=== PATIENT | male | born 1970 | race Caucasian/White ===

== ENCOUNTER 2017-08-04 11:40 | Emergency (ER) | payer BC, OTHER ==
[~2017-08-04] VITALS: Ht 165.1 cm; Wt 107.0 kg
[2017-08-04 12:14] LABS: BASOPHILS # (AUTO) 0.1 X10'3 (0-0.2); EOSINOPHILS # (AUTO) 0.1 X10'3 (0-0.9); EOSINOPHILS % (AUTO) 1.3 % (0-6); HEMATOCRIT 46.7 % (42.0-52.0); HEMOGLOBIN 16.5 g/dl (14.0-17.9); LYMPHOCYTES # (AUTO) 1.7 X10'3 (1.1-4.8); LYMPHOCYTES % (AUTO) 21.1 % (21-51); MEAN CORPUSCULAR HEMOGLOBIN 32.1 PG (27.0-31.0); MEAN CORPUSCULAR HGB CONC 35.2 % (33.0-36.5); MEAN CORPUSCULAR VOLUME 91.1 FL (78-98); MEAN PLATELET VOLUME 7.9 FL (7.4-10.4); MONOCYTES # (AUTO) 0.6 X10'3 (0-0.9); MONOCYTES % (AUTO) 7.4 % (2-12); NEUTROPHILS # (AUTO) 5.5 X10'3 (1.8-7.7); NEUTROPHILS % (AUTO) 69.2 % (42-75); PLATELET COUNT 253 X10'3 (140-440); RED BLOOD COUNT 5.13 X10'6 (4.70-6.10); RED CELL DISTRIBUTION WIDTH 13.6 % (11.5-14.5); WHITE BLOOD COUNT 7.9 X10'3 (4.5-11.0)
[2017-08-04 12:26] LABS: CLARITY,URINE Clear (Clear); GLUCOSE, URINE Negative (Neg); KETONES,URINE Negative (Neg); LEUKOCYTE ESTERASE ,URINE Negative (Neg); NITRITES, URINE Negative (Neg); OCCULT BLOOD,URINE Negative (Neg); PROTEIN,URINE Negative (Neg); UROBILINOGEN,URINE 0.2 E.U/dL (0.2-1.0)
[2017-08-04 12:27] LABS: UA COLLECTION TYPE CLN CATCH MIDSTREAM
[2017-08-04 12:28] LABS: COLOR,URINE COLORLESS (Yellow); URINE AMPHETAMINE SCREEN NEGATIVE (Neg); URINE BARBITUATE SCREEN NEGATIVE (Neg); URINE BENZODIAZEPINES SCREEN NEGATIVE (Neg); URINE CANNABINOID SCREEN NEGATIVE (Neg); URINE COCAINE SCREEN NEGATIVE (Neg); URINE METHADONE SCREEN NEGATIVE (Neg); URINE OPIATE SCREEN NEGATIVE (Neg); URINE PHENCYCLIDINE SCREEN NEGATIVE (Neg)
[2017-08-04 12:34] LABS: ALANINE AMINOTRANSFERASE 59 U/L (12-78); ALBUMIN 4.1 G/DL (3.4-5.0); ALBUMIN/GLOBULIN RATIO 1.1 (1.1-1.5); ALKALINE PHOSPHATASE 44 IU/L (46-116); ANION GAP 12 (8-16); ASPARTATE AMINO TRANSFERASE 44 U/L (10-37); BILIRUBIN,TOTAL 0.8 MG/DL (0.1-1.0); BLOOD UREA NITROGEN 12 MG/DL (7-18); CALCIUM 9.4 MG/DL (8.5-10.1); CHLORIDE 105 MMOL/L (99-107); CREATININE 0.86 MG/DL (0.60-1.10); ETHANOL < 0.010 GM/DL (0.0-0.010); GLUCOSE 104 MG/DL (70-104); POTASSIUM 4.2 MMOL/L (3.5-5.1); SODIUM 141 MMOL/L (135-145); TOTAL CARBON DIOXIDE 24.4 MMOL/L (24-32); TOTAL PROTEIN 7.8 G/DL (6.4-8.2); eGFR > 90 ML/MIN
[2017-08-04] MEDS ORDERED: doxepin 25mg capsule PO STA (15:02)
[2017-08-04] MEDS ORDERED: nicotine 21mg patch - 24 hr TD ONE (16:50)
[2017-08-04] MEDS ORDERED: VENL37.586 PO (17:56)
[2017-08-04] MEDS ORDERED: ALBU8.5H8 IH (17:56)
[2017-08-04] MEDS ORDERED: OMEP40CA37 PO (17:56)
[2017-08-04] MEDS ORDERED: NAPR-56 PO (17:56)
[2017-08-04] MEDS ORDERED: GABA-581 PO (17:56)
[2017-08-04 18:30] VITALS: BP 128/88
== END 2017-08-04 19:44 | disposition home or self-care (01) ==
LOC: ER 11:41
DX: F32.9 Major depressive disorder, single episode, unspecified (principal); R45.851 Suicidal ideations; Z60.2 Problems related to living alone
CPT/HCPCS: 36415; 80053; 80305; 80320; 81003; 84443; 85025; 99284

== ENCOUNTER 2017-08-04 16:40 | Inpatient (IN) | payer BC ==
[~2017-08-04] VITALS: Ht 165.1 cm; Wt 107.8 kg
[2017-08-04] MEDS ORDERED: NAPR-56 PO (17:56)
[2017-08-04] MEDS ORDERED: VENL37.586 PO (17:56)
[2017-08-04] MEDS ORDERED: OMEP40CA37 PO (17:56)
[2017-08-04] MEDS ORDERED: ALBU8.5H8 IH (17:56)
[2017-08-04] MEDS ORDERED: GABA-581 PO (17:56)
[2017-08-04 20:00] VITALS: BP 122/77
[2017-08-04] MEDS ORDERED: naproxen 500mg tablet PO SCH (20:00)
[2017-08-04] MEDS ORDERED: albuterol 2.5 MG/3 ML nebule NEB PRN (20:10)
[2017-08-04] MEDS: GABAPENTIN PO SCH (21:50)
[2017-08-05] MEDS ORDERED: naproxen 500mg tablet PO PRN (05:20)
[2017-08-05] MEDS: pantoprazole 40mg Tablet.DR PO SCH (07:24)
[2017-08-05 07:26] LABS: HEMOGLOBIN A1C 5.6 % (4.5-6.2)
[2017-08-05 07:28] LABS: CHOL/HDL RATIO 4.6 (0.00-4.99); CHOLESTEROL 194 MG/DL (0-200); HDL CHOLESTEROL 42 MG/DL (35-60); LDL CHOLESTEROL 124 MG/DL (50-100); TRIGLYCERIDES 119 MG/DL (20-135)
[2017-08-05 08:00] VITALS: BP 141/96
[2017-08-05] MEDS ORDERED: VENLAFAXINE HCL PO SCH (08:00)
[2017-08-05] MEDS: nicotine 21mg patch - 24 hr TD SCH (09:32)
[2017-08-05] MEDS: hydrOXYzine 25 MG tablet PO PRN (11:26)
[2017-08-05] MEDS: LORazepam 1 MG tablet PO PRN (16:19)
[2017-08-05] MEDS ORDERED: nicotine 21mg patch - 24 hr TD SCH (18:20)
[2017-08-05 19:00] VITALS: BP 116/77
[2017-08-05] MEDS: traZODone 50mg tablet PO PRN (20:50)
[2017-08-05] MEDS: GABAPENTIN PO SCH (20:50)
[2017-08-06] MEDS: pantoprazole 40mg Tablet.DR PO SCH (07:36)
[2017-08-06] MEDS: venlafaxine XR 75mg capsule (Q24H) PO SCH (07:36)
[2017-08-06] MEDS: nicotine 21mg patch - 24 hr TD SCH (07:37)
[2017-08-06 08:00] VITALS: BP 140/89
[2017-08-06 19:23] VITALS: BP 140/88
[2017-08-06] MEDS: gabapentin 300mg capsule PO SCH (21:26)
[2017-08-06] MEDS: traZODone 50mg tablet PO PRN (21:28)
[2017-08-06] MEDS: LORazepam 1 MG tablet PO PRN (21:28)
[2017-08-07 08:00] VITALS: BP 125/85
[2017-08-07] MEDS: venlafaxine XR 75mg capsule (Q24H) PO SCH (08:27)
[2017-08-07] MEDS: pantoprazole 40mg Tablet.DR PO SCH (08:28)
[2017-08-07] MEDS: nicotine 21mg patch - 24 hr TD SCH (08:29)
[2017-08-07 19:00] VITALS: BP 165/90
[2017-08-07] MEDS: hydrOXYzine 25 MG tablet PO PRN (19:10)
[2017-08-07] MEDS: gabapentin 300mg capsule PO SCH (20:45)
[2017-08-07] MEDS: LORazepam 1 MG tablet PO PRN (20:45)
[2017-08-07] MEDS: traZODone 50mg tablet PO PRN (20:45)
[2017-08-08 08:00] VITALS: BP 124/78
[2017-08-08] MEDS: pantoprazole 40mg Tablet.DR PO SCH (08:12)
[2017-08-08] MEDS: venlafaxine XR 75mg capsule (Q24H) PO SCH (08:12)
[2017-08-08] MEDS: nicotine 21mg patch - 24 hr TD SCH (08:12)
[2017-08-08] MEDS: LORazepam 1 MG tablet PO PRN ×2 (11:12→20:59)
[2017-08-08 20:00] VITALS: BP 119/83
[2017-08-08] MEDS: traZODone 50mg tablet PO PRN (20:58)
[2017-08-08] MEDS: gabapentin 300mg capsule PO SCH (20:59)
[2017-08-09 08:00] VITALS: BP 135/89
[2017-08-09] MEDS: venlafaxine XR 75mg capsule (Q24H) PO SCH (08:01)
[2017-08-09] MEDS: pantoprazole 40mg Tablet.DR PO SCH (08:01)
[2017-08-09] MEDS: nicotine 21mg patch - 24 hr TD SCH (08:02)
[2017-08-09] MEDS: LORazepam 1 MG tablet PO PRN ×2 (09:56→20:47)
[2017-08-09 19:00] VITALS: BP 134/93
[2017-08-09] MEDS: traZODone 50mg tablet PO PRN (20:46)
[2017-08-09] MEDS: gabapentin 300mg capsule PO SCH (20:47)
[2017-08-10] MEDS: venlafaxine XR 75mg capsule (Q24H) PO SCH (08:25)
[2017-08-10] MEDS: pantoprazole 40mg Tablet.DR PO SCH (08:25)
[2017-08-10] MEDS: nicotine 21mg patch - 24 hr TD SCH (08:27)
[2017-08-10] MEDS ORDERED: GABA600T2 PO (08:48)
[2017-08-10] MEDS ORDERED: HYDR-3686 PO (08:48)
[2017-08-10] MEDS ORDERED: TRAZ-143 PO (08:48)
[2017-08-10] MEDS ORDERED: PANT40TA4 PO (08:48)
[2017-08-10] MEDS ORDERED: VENL150T3 PO (08:48)
[2017-08-10] MEDS: LORazepam 1 MG tablet PO PRN (08:50)
[2017-08-10] MEDS ORDERED: NICO-687 TD (08:51)
== END 2017-08-10 10:22 | disposition home or self-care (01) | DRG 885 ==
LOC: ADULT MH 16:40
PROVIDERS: ADMIT Psychiatry & Neurology Psychiatry; ATTEND Psychiatry & Neurology Psychiatry
DX: F33.2 Major depressive disorder, recurrent severe without psychotic features (principal); R45.851 Suicidal ideations; F15.20 Other stimulant dependence, uncomplicated; E66.9 Obesity, unspecified; F17.210 Nicotine dependence, cigarettes, uncomplicated; M54.2 Cervicalgia; G89.4 Chronic pain syndrome; F41.9 Anxiety disorder, unspecified; G47.00 Insomnia, unspecified; G47.33 Obstructive sleep apnea (adult) (pediatric); I10 Essential (primary) hypertension; Z80.0 Family history of malignant neoplasm of digestive organs; Z81.8 Family history of other mental and behavioral disorders; Z82.49 Family history of ischemic heart disease and other diseases of the circulatory system; Z79.899 Other long term (current) drug therapy; Z68.39 Body mass index [BMI] 39.0-39.9, adult
CPT/HCPCS: 36415; 80061; 83036; 87070; 94760; 99285; 99407; Q0177